=== PATIENT | male | born 1995 | race Caucasian/White ===

== ENCOUNTER 2021-09-24 11:54 | Emergency (ER) | payer OTHER, SELFPAY ==
[2021-09-24 13:05] VITALS: BP 137/84; PULSE 74; RESP 18; TEMP 37.1; O2SAT 98; BMI 32.1
[2021-09-24 13:38] LABS: UTC Influenza A Antigen Negative (Negative); UTC Strep Screen (Rapid) Positive (Negative)
[2021-09-24 13:39] LABS: UTC Influenza B Antigen Negative (Negative)
--- NOTE | 2021-09-24 13:47 | HMH.EDUTC ---
[facility] [place] Disposition Clinical Impression: Strep throat Disposition: Home, Self-Care Condition on Discharge: Good Instructions: Strep Throat, DI for Strep Throat Additional Instructions: Drink plenty of fluids. Take tylenol or ibuprofen for pain or fever. Take the medications as directed. Follow up with your regular doctor. GO TO THE ER FOR ANY WORSENING SYMPTOMS Throw your tooth brush away and get a new one. Prescriptions: Brompheniramine/Pseudoephed/Dm [Bromfed Dm Cough Syrup] 5 ml PO Q6HP PRN #240 ml PRN Reason: Cough Transmission Status: Received by [id number] Amoxicillin [Amoxicillin 500mg Tab] 500 mg PO TID 10 Days #30 tab Transmission Status: Received by [id number] predniSONE [Deltasone 10mg tablet] 10 mg PO BID 3 Days #6 tab Transmission Status: Received by [id number] Referrals: Provider,Referral, MD [Primary Care Provider] - Forms: Work/School Release Time of Disposition: 13:49 Medical Decision Making - Medical Records Medical records reviewed: No: I reviewed the patient's medical records. - Charles Inquiry Pt receiving controlled substance: No Vital Signs: 09/24/21 13:05 09/24/21 13:52 Temperature 98.7 F 98.7 F Temperature Source Oral Pulse Rate 74 Pulse Rate [Right Brachial] 74 Respiratory Rate 18 18 Blood Pressure 137/84 Blood Pressure [Right Arm] 137/84 Blood Pressure Mean [Right Arm] 101 Blood Pressure Source [Right Arm] Automatic Cuff Blood Pressure Position [Right Arm] Sitting 02 Sat by Pulse Oximetry 98 Oxygen Delivery Method Room Air - Lab Data Lab results reviewed: Yes: I reviewed the patient's lab results. Lab Results 09/24/21 13:20: Chlamy pneumoniae PCR Not detected, Adenovirus (PCR) Not detected, B. pertussis DNA (PCR) Not detected, Coronavirus OC43 (PCR) Not detected, Coronavirus HKU1 (PCR) Not detected, Coronavirus 229E (PCR) Not detected, SARS-CoV-2 (PCR) Not detected, Coronavirus NL63 (PCR) Not detected, Human Metapneumovir PCR Not detected, Influenza A (H1) PCR Not detected, Influ A (H1N1/09) PCR Not detected, Influenza A (H3) PCR Not detected, Influenza Type A (PCR) Not detected, Influenza Type B (PCR) Not detected, M. pneumoniae (PCR) Not detected, Parainfluenza 1 (PCR) Not detected, Parainfluenza 2 (PCR) Not detected, Parainfluenza 3 (PCR) Not detected, Parainfluenza 4 (PCR) Not detected, RSV (PCR) Not detected, Entero/Rhino (PCR) Not detected 09/24/21 13:37: Influenza Type A Ag Negative, Influenza Type B Ag Negative 09/24/21 13:37: Strep Scn Rapid Clinic Positive A [facility] [place] HPI - General Stated complaint: cough, abd pains, DELUCA, diarrhea Time Seen by Provider: 09/24/21 13:51 Mode of Arrival: Ambulatory Source of Information: Patient Limitations: No Limitations Description of Symptoms (Recalled from Triage Doc. by RN): PATIENT C/O HEADACHE, CHILLS, STOMACH ACHE, FEVER, AND DIARRHEA SINCE FRIDAY HEENT Symptoms (Recalled from RN notes): Yes Resp Symptoms (Recalled from RN notes): No Skin Symptoms (Recalled from RN notes): No MS Symptoms (Recalled from RN notes): No Functional Status (Recalled from RN notes): WNL - History of Present Illness Provider Complaint: He c/o feeling bad for the past 5 days. He has been checked for covid-19 at his job ([employer]) and it has been negative. - Related Data Previous Rx's Medication Instructions Recorded Amoxicillin [Amoxicillin 500mg Tab] 500 mg PO TID 10 Days #30 tab 09/24/21 Brompheniramine/Pseudoephed/Dm 5 ml PO Q6HP PRN #240 ml 09/24/21 [Bromfed Dm Cough Syrup] predniSONE [Deltasone 10mg tablet] 10 mg PO BID 3 Days #6 tab 09/24/21 Allergies Allergy/AdvReac Type Severity Reaction Status Date / Time No Known Allergies Allergy Verified 09/24/21 13:37 - Worker's Comp Is this a Worker's Comp case?: No [facility] History - Hepatitis A Screen Drug use history?: No High risk sexual behaviors?: No History of sexually transmitted infection?: No Currently em
[2021-09-24 13:52] VITALS: BP 137/84; PULSE 74; RESP 18; TEMP 37.1; O2SAT 98
[2021-09-24 13:53] LABS: Adenovirus,PCR Not Detected (NotDetected); Bordetella Pertussis Not Detected (NotDetected); Chlamydophila Pneumoniae, PCR Not Detected (NotDetected); Coronavirus 19, PCR Not Detected (NotDetected); Coronavirus 229E Not Detected (NotDetected); Coronavirus NL63 Not Detected (NotDetected); Coronavirus OC43 Not Detected (NotDetected); Coronovirus HKU1,PCR Not Detected (NotDetected); Human Metapneumovirus Not Detected (NotDetected); Influenza A, PCR Not Detected (NotDetected); Influenza AH1, 2009 Not Detected (NotDetected); Influenza AH1, PCR Not Detected (NotDetected); Influenza AH3,PCR Not Detected (NotDetected); Influenza B, PCR Not Detected (NotDetected); Mycoplasma Pneumoniae, PCR Not Detected (NotDetected); Parainfluenza 1, PCR Not Detected (NotDetected); Parainfluenza 2, PCR Not Detected (NotDetected); Parainfluenza 3, PCR Not Detected (NotDetected); Parainfluenza 4, PCR Not Detected (NotDetected); Respiratory Syncytial Virus Not Detected (NotDetected); Rhinovirus/Enterovirus Not Detected (NotDetected)
== END 2021-09-24 13:57 | disposition home or self-care (01) ==
PROVIDERS: Emergency Provider Nurse Practitioner Family
DX: J02.0 Streptococcal pharyngitis (principal)
CPT/HCPCS: 87581; 87632; 87798; 87804; 87880; 99203; C9803; G0463; U0003; U0005

== ENCOUNTER 2023-08-21 09:05 | Emergency (ER) | payer OTHER, SELFPAY ==
[2023-08-21 09:20] VITALS: BP 125/90; PULSE 78; RESP 22; TEMP 37.1; O2SAT 99; BMI 33.2
--- NOTE | 2023-08-21 09:29 | EXP.UTC ---
Discharge Plan Disposition Patient Disposition: Home, Self-Care Condition: Good Prescriptions Prescriptions: New amoxicillin 500 mg capsule 500 mg PO TID 7 Days Qty: 21 0RF fluticasone propionate [Flonase Allergy Relief] 50 mcg/actuation spray,suspension 1 - 2 spray intranasal DAILY Qty: 16 0RF Rx Instructions: administer into each nostril benzonatate 100 mg capsule 100 mg PO TID PRN (Reason: cough) Qty: 30 0RF pseudoephedrine HCl [Sudafed 12 Hour] 120 mg tablet extended release 120 mg PO Q12H PRN (Reason: nasal congestion) Qty: 20 0RF Referrals Follow up/Referrals: Provider,Referral, MD [Primary Care Provider] - See instructions Activity Restrictions/Add. Instructions Additional Instructions/Restrictions: *Monitor Temp, Over the counter Motrin or Tylenol as directed/as needed Tylenol every 4 hours and Motrin every 6 hours (as long as your family doctor has told you that you can take it) for fever or pain. and straight to ER if unable to lower temp less than 101.0 after medication given *Warm salt water gargles may help to soothe the throat *Throat Lozenges? *Warm fluids like tea with honey may help to soothe the throat? *Sleep elevated *Humidifier/Vaporizer *Flonase 2 sprays in each nostril daily but be aware that it may take 2-3 days before you notice improvement Your throat swab was sent for culture. Those results are typically sent to your primary care. Be sure to follow up in 2-3 days with your family doctor/primary care physician if no improvement so they can review those result and treat if necessary. If you don?t have a primary care doctor, I recommend you get one but in the mean time, you will have to return to a walk in clinic Follow up IMMEDIATELY for new or worsening symptoms or no Noticeable improvement over the next 48-72 hours. 911 for difficulty breathing or swallowing Clinical Impressions Clinical Impression: Otitis media Qualifiers: Otitis media type: unspecified Laterality: left Qualified Code(s): H66.92 - Otitis media, unspecified, left ear Stand Alone Forms Stand Alone Forms: Work/School Release Instructions Patient Instructions: Middle Ear Infection Discharge ED Provider: Carlota Juan [facility] [place] HPI General Stated complaint: congestion dizzyness sore throat lyn Mode of Arrival: Ambulatory Source of Information: Patient Limitations: No Limitations Time Seen by Provider: 08/21/23 09:33 Description of Symptoms (Recalled from Triage Doc. by RN): PATIENT C/O CONGESTION, RUNNY NOSE, HEADACHE, DIZZINESS, SORE THROAT, AND LOSS OF TASTE THAT STARTED THIS WEEK HEENT Symptoms (Recalled from RN notes): Yes Resp Symptoms (Recalled from RN notes): No Skin Symptoms (Recalled from RN notes): No MS Symptoms (Recalled from RN notes): No Functional Status (Recalled from RN notes): WNL History of Present Illness Provider Complaint: Patient states that he started earlier in the week with nasal congestion and pressure, sore throat, pain in his left ear, runny nose and headache States that he has been taking OTC cold medications but nothing has helped States that he was at work earlier today and got a little dizzy when he was moving around so he left work and came in to get checked Related Data Previous Rx's Medication Instructions Recorded amoxicillin 500 mg capsule 500 mg PO TID 7 days #21 caps 08/21/23 benzonatate 100 mg capsule 100 mg PO TID PRN cough #30 caps 08/21/23 fluticasone propionate 50 1 - 2 spray intranasal DAILY #16 08/21/23 mcg/actuation nasal grams spray,suspension (Flonase Allergy Relief) pseudoephedrine HCl 120 mg 120 mg PO Q12H PRN nasal 08/21/23 tablet,extended release (Sudafed congestion #20 tabs 12 Hour) Allergies Allergy/AdvReac Type Severity Reaction Status Date / Time shellfish derived Allergy Verified 08/21/23 09:28 Worker's Comp Is this a Worker's Comp case?: No [facility] Disclaimer: T
[2023-08-21 09:31] LABS: UTC Strep Screen (Rapid) Negative (Negative)
[2023-08-21 09:40] VITALS: BP 125/90; PULSE 78; RESP 22; TEMP 37.1; O2SAT 99
== END 2023-08-21 09:44 | disposition home or self-care (01) ==
PROVIDERS: Emergency Provider Nurse Practitioner
DX: H66.92 Otitis media, unspecified, left ear (principal); R05.9 Cough, unspecified; R09.81 Nasal congestion
CPT/HCPCS: 87880; 99212; 99214; G0463

== ENCOUNTER 2023-12-20 21:44 | Emergency (ER) | payer OTHER, SELFPAY ==
[2023-12-20 21:46] VITALS: BP 140/104; PULSE 129; RESP 18; TEMP 38.3; O2SAT 100; BMI 32.3
[2023-12-20 22:15] LABS: Coronavirus 19, PCR Not Detected (NotDetected); Influenza B, PCR Not Detected (NotDetected)
[2023-12-20] MEDS: ONDANSETRON 4MG ODT 4 MG SL (22:29)
[2023-12-20] MEDS: DEXAMETHASONE 4MG TABLET 10 MG PO (22:29)
--- NOTE | 2023-12-20 22:31 | HMH.EDGENADL ---
Discharge Plan Disposition Patient Disposition: Home, Self-Care Prescriptions Prescriptions: New ondansetron 4 mg tablet,disintegrating 4 mg PO Q6H PRN (Reason: nausea and vomiting) Qty: 10 0RF oseltamivir [Tamiflu] 75 mg capsule 75 mg PO BID 5 Days Qty: 10 0RF dexamethasone 2 mg tablet 10 mg PO DAILY 5 Days Qty: 25 0RF No Action amoxicillin 500 mg capsule 500 mg PO TID 7 Days Qty: 21 0RF fluticasone propionate [Flonase Allergy Relief] 50 mcg/actuation spray,suspension 1 - 2 spray intranasal DAILY Qty: 16 0RF Rx Instructions: administer into each nostril benzonatate 100 mg capsule 100 mg PO TID PRN (Reason: cough) Qty: 30 0RF pseudoephedrine HCl [Sudafed 12 Hour] 120 mg tablet extended release 120 mg PO Q12H PRN (Reason: nasal congestion) Qty: 20 0RF Referrals Follow up/Referrals: Provider,Referral, MD [Primary Care Provider] - See instructions Activity Restrictions/Add. Instructions Additional Instructions/Restrictions: Call your family doctor to establish care for this visit to the emergency department and schedule follow-up within 48 hours to ensure improvement. If you have any worsening of your condition or any other concerning signs or symptoms, return to the emergency department or your primary care doctor for further evaluation. Clinical Impressions Clinical Impression: Influenza A Discharge ED Provider: Ander No General Adult HPI General Chief complaint: Upper Respiratory Infection Stated complaint: headache, body aches, vomiting Time Seen by Provider: 12/20/23 21:50 Mode of Arrival: Ambulatory Source of Information: Patient Limitations: No Limitations Description of Symptoms (Recalled from ER Triage Doc. by RN): Patient c/o chills, body aches, and URI symptoms and flu exposure. History of Present Illness HPI narrative: 28-year-old dawit otherwise healthy presenting with fevers, chills, per respiratory symptoms and GI symptoms. Multiple sick contacts with flu. Patient has been unable to keep much p.o. intake down secondary to nausea. Fevers and chills that are responsive to Tylenol and Motrin. Patient also having cough productive of clear sputum. Related Data Previous Rx's Medication Instructions Recorded amoxicillin 500 mg capsule 500 mg PO TID 7 days #21 caps 08/21/23 benzonatate 100 mg capsule 100 mg PO TID PRN cough #30 caps 08/21/23 fluticasone propionate 50 1 - 2 spray intranasal DAILY #16 08/21/23 mcg/actuation nasal grams spray,suspension (Flonase Allergy Relief) pseudoephedrine HCl 120 mg 120 mg PO Q12H PRN nasal 08/21/23 tablet,extended release (Sudafed congestion #20 tabs 12 Hour) dexamethasone 2 mg tablet 10 mg PO DAILY 5 days #25 tabs 12/20/23 ondansetron 4 mg disintegrating 4 mg PO Q6H PRN nausea and 12/20/23 tablet vomiting #10 tabs oseltamivir 75 mg capsule (Tamiflu) 75 mg PO BID 5 days #10 caps 12/20/23 Allergies Allergy/AdvReac Type Severity Reaction Status Date / Time shellfish derived Allergy Verified 08/21/23 09:28 [facility] Disclaimer: The information contained in this section may have been updated after the patient was seen, as this information can be updated by other users. Surgical History (Updated 08/21/23 @ 09:28 by Delmi Valero RN) History of tonsillectomy Social History (Updated 08/21/23 @ 09:42 by Carlota Juan APRN) Smoking Status: Never smoker alcohol intake: never current occupational status: employed Travel in the last 8 weeks: None ROS Obtained: Yes All systems reviewed & no additional complaints except as documented Physical Exam General General appearance: alert and in no apparent distress Head Head exam: atraumatic and normocephalic Eye Eye exam: Present normal appearance, PERRL and EOMI ENT ENT exam: Present mucous membranes moist Neck Neck exam: Present normal inspection, full ROM and trachea midline Respiratory Respiratory exam: Absent respiratory distress, wheezes, stridor, accessory muscle use or prolonged expiratory phase Cardiovascular Cardiovascular exam: Present normal rhythm Abdominal Exam Abdominal exam: Present soft; Absent distention, tenderness, guarding, rebound or rigidity Extremities Exam Extremities exam: Absent edema Neurological Exam Neurological exam: Present alert, oriented X3, CN II-XII intact and normal gait; Absent motor sensory deficit Skin Skin exam: Present warm and dry; Absent diaphoresis or erythema Medical Decision Making Medical Records Medical records reviewed: Yes I reviewed the patient's medical records. Charles Inquiry Pt receiving controlled substance: No Charles was queried for this patient: No Vital Signs: 12/20/23 21:46 12/20/23 22:44 Temperature 100.9 F H 98.9 F Temperature Source Oral Oral Pulse Rate 110 H Pulse Rate [Radial] 129 H Respiratory Rate 18 18 Blood Pressure 140/90 Blood Pressure [Right Arm] 140/104 H Blood Pressure Mean [Right Arm] 116 02 Sat by Pulse Oximetry 100 Oxygen Delivery Method Room Air Orders (Tests/Meds): ED MEDICATIONS Discontinued Medications Generic Name Dose Route Start Last Admin Trade Name Jun PRN Reason Stop Dose Admin Dexamethasone 10 mg 12/20/23 22:22 12/20/23 22:29 Dexamethasone 4mg Tablet PO 12/20/23 22:23 10 mg ONCE ONE Administration Ondansetron HCl 4 mg 12/20/23 22:22 12/20/23 22:29 Ondansetron 4mg Odt SL 12/20/23 22:23 4 mg ONCE ONE Administration ORDERS Category Date Time Status Rapid PCR Covid and Flu A/B Stat Lab 12/20/23 22:03 Received Medical Decision Narrative: 28-year-old dawit otherwise healthy presenting with fevers, chills, per respiratory symptoms and GI symptoms. Multiple sick contacts with flu. Patient has been unable to keep much p.o. intake down secondary to nausea. Fevers and chills that are responsive to Tylenol and Motrin. Patient also having cough productive of clear sputum. History was obtained via conversation with patient. On arrival, patient hemodynamically stable, alert, oriented x4, appropriate, GCS 15, moving all extremities spontaneously, pupils equal and reactive to light. Full physical exam performed and significant for well-appearing male no acute distress. Hypertensive, tachycardic, febrile 100.9. Lungs are clear to auscultation, patient appears to be mildly uncomfortable, but pleasant and appropriate. Intermittently coughing, but not producing anything. Differential includes flu versus other viral syndrome, among others. Patient was given Decadron, Zofran p.o for symptomatic management and correction of underlying abnormalities. Workup independently interpreted and significant for positive. Chest x-ray considered given productive cough, but given 3 days of symptoms and clinically viral syndrome, not deemed necessary. Very low likelihood of bacterial pneumonia given well-appearing patient. On reevaluation, patient tolerating p.o. intake without issue. Given patient presentation, workup, history, this most likely represents flu a positivity. Because patient at baseline without signs or symptoms of clinical decompensation, deemed appropriate for discharge. Results were relayed to patient father who voiced understanding and were agreeable to outpatient management and follow up. At the time of discharge the patient was hemodynamically stable, tolerating PO, and mobilizing appropriately. Critical Care Critical Care Time Critical Care Time: No
[2023-12-20 22:44] VITALS: BP 140/90; PULSE 110; RESP 18; TEMP 37.2; O2SAT 100
--- NOTE | 2023-12-20 22:44 | PC.NURSE ---
in room talking with patient.
[2023-12-20 23:08] LABS: Influenza A, PCR Detected (NotDetected)
== END 2023-12-20 22:59 | disposition home or self-care (01) ==
PROVIDERS: Emergency Provider Emergency Medicine
DX: J10.1 Influenza due to other identified influenza virus with other respiratory manifestations (principal); J10.2 Influenza due to other identified influenza virus with gastrointestinal manifestations; R05.9 Cough, unspecified; R50.9 Fever, unspecified; R11.0 Nausea
CPT/HCPCS: 87636; 99283

== ENCOUNTER 2023-12-26 08:03 | Emergency (ER) | payer BC, SELFPAY ==
[2023-12-26 08:10] VITALS: BP 133/87; PULSE 93; RESP 18; TEMP 36.9; O2SAT 97; BMI 32.2
--- NOTE | 2023-12-26 08:23 | ED_ITS ---
Discharge Plan Disposition Patient Disposition: Home, Self-Care Condition: Good Prescriptions Prescriptions: New mtivjhuz-ctymalhwb-RO 3.5-10,000-1 mg/mL-unit/mL-% solution 4 drp Ear-Right Q8H 7 Days Qty: 10 0RF amoxicillin [amoxicillin] 875 mg tablet 875 mg PO Q12H Qty: 20 0RF methylprednisolone 4 mg Tablets,Dose Pack 4 mg PO DIRECTED 6 Days Qty: 21 0RF Rx Instructions: Take 1 pack as directed for 6 days No Action fluticasone propionate [Flonase Allergy Relief] 50 mcg/actuation spray,suspension 1 - 2 spray intranasal DAILY Qty: 16 0RF Rx Instructions: administer into each nostril ondansetron 4 mg tablet,disintegrating 4 mg PO Q6H PRN (Reason: nausea and vomiting) Qty: 10 0RF dexamethasone 2 mg tablet 10 mg PO DAILY 5 Days Qty: 25 0RF Referrals Follow up/Referrals: Provider,Referral, MD [Primary Care Provider] - See instructions Activity Restrictions/Add. Instructions Additional Instructions/Restrictions: Drink plenty of fluids. Take tylenol or ibuprofen for pain or fever. Take the medications as directed. Follow up with your regular doctor. GO TO THE ER FOR ANY WORSENING SYMPTOMS Clinical Impressions Clinical Impression: Otitis media Instructions Patient Instructions: How to Instill Ear Drops, Middle Ear Infection Discharge ED Provider: Seth Jacobo [facility] General Stated complaint: R ear pain, Time Seen by Provider: 12/26/23 08:23 History of Present Illness Provider Complaint: He states that he has had right ear pain and sinus congestion for the past 2 days. Related Data Previous Rx's Medication Instructions Recorded fluticasone propionate 50 1 - 2 spray intranasal DAILY #16 08/21/23 mcg/actuation nasal grams spray,suspension (Flonase Allergy Relief) dexamethasone 2 mg tablet 10 mg PO DAILY 5 days #25 tabs 12/20/23 ondansetron 4 mg disintegrating 4 mg PO Q6H PRN nausea and 12/20/23 tablet vomiting #10 tabs amoxicillin 875 mg tablet 875 mg PO Q12H #20 tabs 12/26/23 methylprednisolone 4 mg tablets in 4 mg PO DIRECTED 6 days #21 tabs 12/26/23 a dose pack [id number]-skynfnlhr 3.5 4 drp Ear-Right Q8H 7 days #10 mL 12/26/23 mg/mL-10,000 unit/mL-1 % ear solution Allergies Allergy/AdvReac Type Severity Reaction Status Date / Time shellfish derived Allergy Verified 12/26/23 08:34 [facility] Disclaimer: The information contained in this section may have been updated after the patient was seen, as this information can be updated by other users. Surgical History History of tonsillectomy Social History Smoking Status: Never smoker alcohol intake: never current occupational status: employed Travel in the last 8 weeks: None ROS Obtained: Yes All systems reviewed & no additional complaints except as documented Constitutional Constitutional: Denies chills, Reports fever(s) and Reports poor appetite Eyes Eyes: Denies eye discharge ENT Ears, Nose, Mouth, and Throat: Denies ear discharge, Reports otalgia, Denies hearing loss, Denies sinus pain and Reports sore throat Cardiovascular Cardiovascular: Denies chest pain and Denies dyspnea Respiratory Respiratory: Denies chest congestion, Reports cough and Denies dyspnea Gastrointestinal Gastrointestingal: Denies abdominal pain, diarrhea, nausea or vomiting Musculoskeletal Musculoskeletal: Denies arthralgias Integumentary/Breasts Skin/Breast: Denies rash Physical Exam General General appearance: alert and in no apparent distress Head Head exam: atraumatic, normocephalic and normal inspection Eye Eye exam: Present normal appearance; Absent PERRL or EOMI ENT ENT exam: Present mucous membranes moist and normal external ear exam Expanded ENT Exam TM/Canal exam: Bilateral TM: erythema, bulging and effusion Nose exam: Absent sinus tenderness Nasal speculum exam: Bilateral: normal Mouth exam: Present normal external inspection and other; Absent drooling Teeth exam: Present normal inspection Throat exam: Present tonsillar erythema and tonsillomegaly Neck Neck exam: Present normal inspection, full ROM and trachea midline; Absent tenderness, meningismus or lymphadenopathy Chest Chest inspection: Present normal inspection and symmetric chest wall rise; Absent tenderness Respiratory Respiratory exam: Present normal lung sounds bilaterally; Absent respiratory distress, wheezes or stridor Cardiovascular Cardiovascular exam: Present regular rate, normal rhythm and normal heart sounds; Absent tachycardia or irregular rhythm Abdominal Exam Abdominal exam: Present soft and normal bowel sounds; Absent distention, tenderness, guarding, rebound or rigidity Extremities Exam Extremities exam: Present normal inspection and normal capillary refill; Absent tenderness, joint swelling or calf tenderness Back Exam Back exam: Present normal inspection and full ROM; Absent tenderness, CVA tenderness (R) or CVA tenderness (L) Neurological Exam Neurological exam: Present alert, oriented X3, CN II-XII intact, normal gait and reflexes normal; Absent motor sensory deficit Psychiatric Psychiatric exam: Present normal affect and normal mood Skin Skin exam: Present warm, dry, intact and normal color Lymphatic Lymphatic Findings: no adenopathy Medical Decision Making Medical Records Medical records reviewed: No I reviewed the patient's medical records. Charles Inquiry Pt receiving controlled substance: No
[2023-12-26 08:37] VITALS: BP 133/87; PULSE 93; RESP 18; TEMP 36.9; O2SAT 97
== END 2023-12-26 08:37 | disposition home or self-care (01) ==
PROVIDERS: Emergency Provider Nurse Practitioner Family
DX: H66.93 Otitis media, unspecified, bilateral (principal); R09.81 Nasal congestion
CPT/HCPCS: 99212; 99214; G0463

== ENCOUNTER 2023-12-29 17:11 | Emergency (ER) | payer BC, SELFPAY ==
[2023-12-29 19:30] VITALS: BP 131/87; PULSE 87; RESP 19; TEMP 37.7; O2SAT 98; BMI 32.3
--- NOTE | 2023-12-29 20:04 | EXP.UTC ---
Discharge Plan Disposition Patient Disposition: Home, Self-Care Condition: Good Prescriptions Prescriptions: New prednisone 10 mg tablet 10 mg PO BID 5 Days Qty: 10 0RF No Action gsiwmgir-wpefcccqi-PB 3.5-10,000-1 mg/mL-unit/mL-% solution 4 drp Ear-Right Q8H 7 Days Qty: 10 0RF amoxicillin [amoxicillin] 875 mg tablet 875 mg PO Q12H Qty: 20 0RF methylprednisolone 4 mg Tablets,Dose Pack 4 mg PO DIRECTED 6 Days Qty: 21 0RF Rx Instructions: Take 1 pack as directed for 6 days Referrals Follow up/Referrals: Provider,Referral, MD [Primary Care Provider] - See instructions Activity Restrictions/Add. Instructions Additional Instructions/Restrictions: Continue Amoxicillin as prescribed DIscard the Medrol Dose pack and do not restart I sent you in Prednisone that is easier for you to keep on schedule Follow up with your Family Doctor or ENT if no improvement or any worsening of symptoms Clinical Impressions Clinical Impression: Otitis media Qualifiers: Otitis media type: unspecified Laterality: right Qualified Code(s): H66.91 - Otitis media, unspecified, right ear Instructions Patient Instructions: Middle Ear Infection, Prednisone Discharge ED Provider: Carlota Juan [facility] General Stated complaint: right ear pain Mode of Arrival: Ambulatory Source of Information: Patient Limitations: No Limitations Time Seen by Provider: 12/29/23 20:10 Description of Symptoms (Recalled from Triage Doc. by RN): PATIENT C/O RIGHT EAR PAIN, STATES HE WAS RECENTLY ON AN ANTIBIOTICS HEENT Symptoms (Recalled from RN notes): Yes Resp Symptoms (Recalled from RN notes): No Skin Symptoms (Recalled from RN notes): No MS Symptoms (Recalled from RN notes): No Functional Status (Recalled from RN notes): WNL History of Present Illness Provider Complaint: Patient states that he was seen on Friday and started on antibiotics and was told to return if it wasnt any better States that he was given a medrol pack but has had a hard time keeping on the schedule and wanting to get something else he stopped it after the first day Related Data Previous Rx's Medication Instructions Recorded amoxicillin 875 mg tablet 875 mg PO Q12H #20 tabs 12/26/23 methylprednisolone 4 mg tablets in 4 mg PO DIRECTED 6 days #21 tabs 12/26/23 a dose pack zkpuwlfr-fkhkalopo-ghayqphbd 3.5 4 drp Ear-Right Q8H 7 days #10 mL 12/26/23 mg/mL-10,000 unit/mL-1 % ear solution prednisone 10 mg tablet 10 mg PO BID 5 days #10 tabs 12/29/23 Allergies Allergy/AdvReac Type Severity Reaction Status Date / Time shellfish derived Allergy Verified 12/26/23 08:34 Worker's Comp Is this a Worker's Comp case?: No [facility] Disclaimer: The information contained in this section may have been updated after the patient was seen, as this information can be updated by other users. Surgical History History of tonsillectomy Social History Smoking Status: Never smoker alcohol intake: never current occupational status: employed Travel in the last 8 weeks: None ROS Obtained: Yes All systems reviewed & no additional complaints except as documented and Yes Systems reviewed as appropriate & no additional complaints except as documented Constitutional Constitutional: Reports system reviewed and no additional complaints, except as documented and Reports as per HPI ENT Ears, Nose, Mouth, and Throat: Reports system reviewed and no additional complaints, except as documented, Reports as per HPI and Reports otalgia Cardiovascular Cardiovascular: Reports system reviewed and no additional complaints, except as documented and Reports as per HPI Respiratory Respiratory: Reports system reviewed and no additional complaints, except as documented and Reports as per HPI Gastrointestinal Gastrointestingal: Reports system reviewed and no additional complaints, except as documented and as per HPI Physical Exam General General appearance: alert and in no apparent distress ENT ENT exam: Present mucous membranes moist Expanded ENT Exam TM/Canal exam: Right TM: erythema and bulging (redness noted ) Respiratory Respiratory exam: Present normal lung sounds bilaterally; Absent respiratory distress or wheezes Cardiovascular Cardiovascular exam: Present regular rate, normal rhythm and normal heart sounds Neurological Exam Neurological exam: Present alert, oriented X3 and normal gait Medical Decision Making Charles Inquiry Pt receiving controlled substance: No Charles was queried for this patient: No Vital Signs: 12/29/23 19:30 Temperature 99.8 F H Temperature Source Oral Pulse Rate [Right Brachial] 87 Respiratory Rate 19 Blood Pressure [Right Arm] 131/87 Blood Pressure Mean [Right Arm] 101 Blood Pressure Source [Right Arm] Automatic Cuff Blood Pressure Position [Right Arm] Sitting 02 Sat by Pulse Oximetry 98 Oxygen Delivery Method Room Air Medical Decision Narrative: discussed with patient to not restart medrol and will change to prednisone
[2023-12-29 20:09] VITALS: BP 131/87; PULSE 87; RESP 19; TEMP 37.7; O2SAT 98
== END 2023-12-29 20:17 | disposition home or self-care (01) ==
PROVIDERS: Emergency Provider Nurse Practitioner
DX: H66.91 Otitis media, unspecified, right ear (principal)
CPT/HCPCS: 99212; 99213; G0463

== ENCOUNTER 2024-04-27 18:03 | Emergency (ER) | payer BC, SELFPAY ==
[2024-04-27 18:03] VITALS: BP 156/98; PULSE 96; RESP 18; TEMP 37.7; O2SAT 98; BMI 31.5
--- NOTE | 2024-04-27 18:14 | ED_ITS ---
Discharge Plan Prescriptions Prescriptions: No Action ztwqumym-olmeceznj-PC 3.5-10,000-1 mg/mL-unit/mL-% solution 4 drp Ear-Right Q8H 7 Days Qty: 10 0RF amoxicillin [amoxicillin] 875 mg tablet 875 mg PO Q12H Qty: 20 0RF methylprednisolone 4 mg Tablets,Dose Pack 4 mg PO DIRECTED 6 Days Qty: 21 0RF Rx Instructions: Take 1 pack as directed for 6 days prednisone 10 mg tablet 10 mg PO BID 5 Days Qty: 10 0RF Referrals Follow up/Referrals: Provider,Referral, MD [Primary Care Provider] - See instructions Discharge ED Provider: Ander No General Adult HPI General Stated complaint: exp to covid-sore throat, cough, body aches Time Seen by Provider: 04/27/24 18:12 Related Data Previous Rx's Medication Instructions Recorded amoxicillin 875 mg tablet 875 mg PO Q12H #20 tabs 12/26/23 methylprednisolone 4 mg tablets in 4 mg PO DIRECTED 6 days #21 tabs 12/26/23 a dose pack lhbxijiw-yzugnmevt-hmcwihlmj 3.5 4 drp Ear-Right Q8H 7 days #10 mL 12/26/23 mg/mL-10,000 unit/mL-1 % ear solution prednisone 10 mg tablet 10 mg PO BID 5 days #10 tabs 12/29/23 Allergies Allergy/AdvReac Type Severity Reaction Status Date / Time shellfish derived Allergy Verified 12/26/23 08:34 [facility] Disclaimer: The information contained in this section may have been updated after the patient was seen, as this information can be updated by other users. Surgical History History of tonsillectomy Social History Smoking Status: Never smoker alcohol intake: never current occupational status: employed Travel in the last 8 weeks: None ROS Obtained: Yes Systems reviewed as appropriate & no additional complaints except as documented Physical Exam General General appearance: alert and in no apparent distress Head Head exam: atraumatic and normal inspection Eye Eye exam: Present normal appearance, PERRL and EOMI ENT ENT exam: Present normal exam, normal oropharynx and mucous membranes moist Neck Neck exam: Present normal inspection, full ROM and trachea midline; Absent lymphadenopathy Chest Chest inspection: Present normal inspection and symmetric chest wall rise Respiratory Respiratory exam: Present normal lung sounds bilaterally; Absent accessory muscle use Cardiovascular Cardiovascular exam: Present regular rate, normal rhythm, normal heart sounds, +S1 and +S2 Abdominal Exam Abdominal exam: Present soft and normal bowel sounds; Absent tenderness, guarding or rebound Extremities Exam Extremities exam: Present normal inspection and full ROM Neurological Exam Neurological exam: Present alert, oriented X3 and CN II-XII intact Psychiatric Psychiatric exam: Present normal affect and normal mood Skin Skin exam: Present warm, dry and normal color Lymphatic Lymphatic Findings: no adenopathy Medical Decision Making Medical Decision Narrative: In summary patient is a [age, sex] who presents to the emergency department for evaluation of [complaint]. Patient is [hemodynamically stable/unstable] upon arrival, [febrile/afebrile]. [Unremarkable physical exam, nonfocal exam versus focal remarkable exam]. Differential diagnosis includes [DDx]. Initial workup will be conducted with [hematologic labs, imaging, respiratory swab, describe workup]. Initial interventions include [crystalloid bolus, medications, p.o. challenge, etc.] initial workup reviewed by me [hematologic labs are remarkable for... Imaging remarkable for... Urinalysis remarkable for]. Upon repeat evaluation [patient had acceptable resolution of symptoms, had persistent pain for which additional interventions were conducted (describe interventions), tolerated p.o., was ambulatory, etc.]. Given this [patient is appropriate for discharge at this time and will be discharged with a prescription for... The case was discussed with hospital medicine regarding management and they will admit the patient their service for continued evaluation at this time... Etc.] Places where you can increase complexity: I informally interpreted the patient's chest x-ray or CT read and is remarkable for... Documenting what the registered nurse cardiac telemetry shows with rate and rhythm Consideration of test but deferring. Ex: I considered chest x-ray on this patient however given that they have no oxygen requirement and are clear to auscultation all lung morton will be deferred. Social determinants of health: Given that patient is undomiciled increases complexity. Given that patient has polysubstance abuse compounds all aspects of care
[2024-04-27 18:22] VITALS: BMI 31.5
[2024-04-27 18:28] LABS: Coronavirus 19, PCR Not Detected (NotDetected); Influenza A, PCR Not Detected (NotDetected); Influenza B, PCR Not Detected (NotDetected)
[2024-04-27] MEDS: DEXAMETHASONE 4MG TABLET 10 MG PO (18:41)
--- NOTE | 2024-04-27 18:46 | ED_ITS ---
Discharge Plan Disposition Patient Disposition: Home, Self-Care Prescriptions Prescriptions: No Action No Known Home Medications Referrals Follow up/Referrals: Provider,Referral, MD [Primary Care Provider] - See instructions Activity Restrictions/Add. Instructions Additional Instructions/Restrictions: Call your family doctor to establish care for this visit to the emergency department and schedule follow-up within 48 hours to ensure improvement. If you have any worsening of your condition or any other concerning signs or symptoms, return to the emergency department or your primary care doctor for further evaluation. Nightly Zyrtec, Claritin, or other allergy med will help with cough. Take Tylenol 1000 mg every 6 hours (4 times daily) and ibuprofen 400 mg every 6 hours (4 times daily) as needed with food and water to prevent GI upset and kidney damage. Clinical Impressions Clinical Impression: Cough, Pharyngitis Discharge ED Provider: Ander No General Adult HPI General Chief complaint: Upper Respiratory Infection Stated complaint: exp to covid-sore throat, cough, body aches Time Seen by Provider: 04/27/24 18:12 History of Present Illness HPI narrative: Please note that above description of symptoms, in this electronic medical record under categorization of recalled from ER triage doctor by RN are reflective of an initial nursing assessment, however, is not reflective of my full history and physical exam that was personally taken and clarified. Consequentially, this preceding description of symptoms, which may include the patient's categorized chief complaint in the EMR, do not reflect my personal clinical impression, and the ultimate description of history of present illness and patient stated complaints should be deferred to this section of the note. Unless stated otherwise or congruent with this section of the note, additional signs, symptoms, or incongruence should be interpreted as inaccurate with my clinical impression. Related Data Home Medications Medication Instructions Recorded Confirmed No Known Home Medications 04/27/24 04/27/24 Allergies Allergy/AdvReac Type Severity Reaction Status Date / Time shellfish derived Allergy Verified 04/27/24 18:50 [facility] Disclaimer: The information contained in this section may have been updated after the patient was seen, as this information can be updated by other users. Surgical History History of tonsillectomy Social History Smoking Status: Never smoker alcohol intake: never current occupational status: employed Travel in the last 8 weeks: None ROS Obtained: Yes All systems reviewed & no additional complaints except as documented Physical Exam General General appearance: alert and in no apparent distress Head Head exam: atraumatic and normocephalic Eye Eye exam: Present normal appearance, PERRL and EOMI ENT ENT exam: Present mucous membranes moist Neck Neck exam: Present normal inspection, full ROM and trachea midline Respiratory Respiratory exam: Absent respiratory distress, wheezes, stridor, accessory muscle use or prolonged expiratory phase Cardiovascular Cardiovascular exam: Present normal rhythm Abdominal Exam Abdominal exam: Present soft; Absent distention, tenderness, guarding, rebound or rigidity Extremities Exam Extremities exam: Absent edema Neurological Exam Neurological exam: Present alert, oriented X3, CN II-XII intact and normal gait; Absent motor sensory deficit Skin Skin exam: Present warm and dry; Absent diaphoresis or erythema Medical Decision Making Medical Records Medical records reviewed: Yes I reviewed the patient's medical records. Charles Inquiry Pt receiving controlled substance: No Charles was queried for this patient: No Vital Signs: 04/27/24 18:03 Temperature 99.9 F H Temperature Source Oral Pulse Rate [Left Radial] 96 H Respiratory Rate 18 Blood Pressure [Right Arm] 156/98 H Blood Pressure Mean [Right Arm] 117 Blood Pressure Source [Right Arm] Automatic Cuff Blood Pressure Position [Right Arm] Sitting 02 Sat by Pulse Oximetry 98 Oxygen Delivery Method Room Air Lab Data Lab Results 04/27/24 18:20: SARS-CoV-2 (PCR) Not detected, Influenza A Untype (PCR) Not detected, Influenza Type B (PCR) Not detected Orders (Tests/Meds): ED MEDICATIONS Discontinued Medications Generic Name Dose Route Start Last Admin Trade Name Luisq PRN Reason Stop Dose Admin Dexamethasone 10 mg 04/27/24 18:23 04/27/24 18:41 Dexamethasone 4mg Tablet PO 04/27/24 18:24 10 mg ONCE ONE Administration ORDERS Category Date Time Status Rapid PCR Covid and Flu A/B Stat Lab 04/27/24 18:20 Completed Medical Decision Narrative: 28-year-old male presenting with viral symptoms. Has been going on getting worse last couple days. Sore throat, nausea without vomiting, tactile fevers and chills. Patient continues Tylenol Motrin with mild relief. States he is also had a cough at night that is worse, but intermittent throughout the day. Nonproductive. Patient does have a sick contact in the house, daughter started with the symptoms a couple days prior and is having similar symptoms. History obtained patient. Patient hemodynamically stable. Cardiopulmonary exam within normal limits. Neurologically intact. Pharyngeal erythema without tonsillitis or exudate. Not coughing. Differential includes viral syndrome, among others. Utility of viral swab was discussed, patient opting for viral swab anyway. Decadron to be given. Viral swab resulted with negative COVID and flu. Because patient at baseline without signs or symptoms of clinical decompensation, deemed appropriate for discharge. Results were relayed to patient who voiced understanding and were agreeable to outpatient management and follow up. I discussed my clinical impression with patient and answered all questions. At this time, the evidence for any other entities in the differential is insufficient to warrant any further testing or ED observation. This was explained as well. Advisory was given that persistent or worsening symptoms require further evaluation. I confirmed the understanding of this discussion. Die Trimmer disclaimer Much of this encounter note is an electronic irish moss bleacher spoken language to printed text. Electronic irish moss bleacher of the spoken language may permit errors. Although I have reviewed the note, some errors may still exist. Critical Care Critical Care Time Critical Care Time: No
[2024-04-27 20:18] VITALS: BP 151/70; PULSE 63; RESP 19; TEMP 36.8; O2SAT 99
== END 2024-04-27 20:19 | disposition home or self-care (01) ==
PROVIDERS: Emergency Provider Emergency Medicine
DX: R05.9 Cough, unspecified (principal); J02.9 Acute pharyngitis, unspecified
CPT/HCPCS: 87636; 99283

== ENCOUNTER 2024-05-09 20:58 | Emergency (ER) | payer BC, SELFPAY ==
[2024-05-09 20:59] VITALS: BP 136/90; PULSE 105; RESP 16; TEMP 38.2; O2SAT 99; BMI 32.3
--- NOTE | 2024-05-09 21:00 | ED_ITS ---
<Statement entered by uJdith Bautista DO - 05/09/24 21:31> I was consulted by the GARY, and we discussed the complexity of the problems being addressed. I approved the treatment and management plan for this patient's care in the emergency department, thus performing a substantive portion of the medical decision making. Limited soft tissue ultrasound Indication: Soft tissue pain, swelling, redness, and fever Identified structures: Location: Left foot Findings: -Cellulitis without well-circumscribed abscess. No notable foreign body or gas. Impression: Cellulitis of soft tissue Images were saved to permanent archive The study was technically adequate Soft Tissue CPT Codes: CPT Lower Extremity: 15813-16 This study was performed by me, and I personally interpreted all images/videos. Based on my clinical judgement, these images were [adequate/inadequate] and [did/did not] necessitate further imaging. Judith Bautista DO Discharge Plan Disposition Patient Disposition: Home, Self-Care Condition: Good Prescriptions Prescriptions: No Action No Known Home Medications Referrals Follow up/Referrals: Provider,Referral, MD [Primary Care Provider] - See instructions Mana Das DPM [Staff Physician] - See instructions (Left foot infection and chronic fungal infections) Clinical Impressions Clinical Impression: Cellulitis of foot, left Instructions Patient Instructions: Cellulitis, DI for Skin Abscess Discharge ED Provider: Judith Bautista General Adult HPI General Chief complaint: Skin/Abscess/Foreign Body Stated complaint: ? spider bite left foot Time Seen by Provider: 05/09/24 21:00 History of Present Illness HPI narrative: Patient presents for evaluation of a possible spider bite on his left foot. Patient states that he worked a full shift at [employer] and has his shift continue to go on began having more more discomfort in his left foot. When he took his work boot off he noticed that he had a swelling on the top of his left foot. He did not particularly feel a bite nor did he find a spider carcass. Patient does have some fungal infections in the interdigital space of his toes on the left and right foot primarily between the fourth and fifth digit but the skin is not wet or macerated. 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 Related Data Home Medications Medication Instructions Recorded Confirmed No Known Home Medications 04/27/24 04/27/24 Allergies Allergy/AdvReac Type Severity Reaction Status Date / Time shellfish derived Allergy Verified 04/27/24 18:50 [facility] Disclaimer: The information contained in this section may have been updated after the patient was seen, as this information can be updated by other users. Surgical History History of tonsillectomy Social History Smoking Status: Never smoker alcohol intake: never current occupational status: employed Travel in the last 8 weeks: None ROS Obtained: Yes Systems reviewed as appropriate & no additional complaints except as documented Physical Exam General General appearance: alert and in no apparent distress Respiratory Respiratory exam: Present normal lung sounds bilaterally Cardiovascular Cardiovascular exam: Present regular rate and normal rhythm Expanded Lower Extremity Exam Left: Foot/toe exam: Present full ROM, tenderness, swelling and erythema Top foot image: 2 1. Total area of swelling in the borders marked by myself with an ink pen 2. Central area of necrosis Neurovascular/Tendon exam: Present normal capillary refill; Absent pulse deficit, motor deficit, sensory deficit or tendon deficit Gait: antalgic Neurological Exam Neurological exam: Present alert and oriented X3 Psychiatric Psychiatric exam: Present normal mood Medical Decision Making Medical Records Medical records reviewed: Yes I reviewed the patient's medical records. Charles Inquiry Pt receiving controlled substance: No Vital Signs: 05/09/24 20:59 Temperature 100.7 F H Temperature Source Oral Pulse Rate [Left] 105 H Respiratory Rate 16 Blood Pressure [Right Arm] 136/90 Blood Pressure Mean [Right Arm] 105 02 Sat by Pulse Oximetry 99 Lab Data Lab results reviewed: Yes I reviewed the patient's lab results. Lab Results 05/09/24 21:15: WBC 12.6 H, RBC 5.31, Hgb 15.3, Hct 45.8, MCV 86.3, MCH 28.9, MCHC 33.5, RDW 13.9, Plt Count 201, MPV 8.1, Neut % (Auto) 84.1 H, Lymph % (Auto) 9.5 L, [place] % (Auto) 3.7, Eos % (Auto) 1.7, Baso % (Auto) 1.0, Neut # (Auto) 10.6 H, Lymph # (Auto) 1.2, [place] # (Auto) 0.5, Eos # (Auto) 0.2, Baso # (Auto) 0.1, ESR 14, Sodium 139, Potassium 3.7, Chloride 100, Carbon Dioxide 30, Anion Gap 12.7, BUN 10, Creatinine 0.90, Estimated Creat Clear 175, Estimated GFR 100, Est GFR ( Amer) 121, Glucose 107 H, Calcium 9.8, C-Reactive Protein 13.6 H, Procalcitonin 0.088 05/09/24 21:49: SARS-CoV-2 (PCR) Not detected, Influenza A Untype (PCR) Not detected, Influenza Type B (PCR) Not detected 05/09/24 21:15 05/09/24 21:15 Orders (Tests/Meds): ED MEDICATIONS Discontinued Medications Generic Name Dose Route Start Last Admin Trade Name Freq PRN Reason Stop Dose Admin Acetaminophen 1,000 mg 05/09/24 21:06 05/09/24 21:13 Acetaminophen 500mg Tab PO 05/09/24 21:07 1,000 mg ONCE ONE Administration Lactated Ringer's 1,000 mls @ 999 mls/hr 05/09/24 21:06 05/09/24 21:13 Lactated Ringer's 1000 Ml Bag IV 05/09/24 22:06 999 mls/hr .Q1H1M ONE Administration Dalbavancin 1,500 mg/ Dextrose 250 mls @ 500 mls/hr 05/09/24 22:18 IV 05/09/24 22:19 ONCE ONE Ketorolac Tromethamine 15 mg 05/09/24 21:06 05/09/24 21:13 Ketorolac 30mg/Ml Vial IV 05/09/24 21:07 15 mg ONCE ONE Administration ORDERS Category Date Time Status CXR 2 view (NOT portable) [XR chest 2V] Stat Exams 05/09/24 21:27 Taken Foot XR left minimum 3 views [XR foot LT min 3V] Stat Exams 05/09/24 21:28 Taken POCUS Point of Care (ER Only) Stat Exams 05/09/24 21:08 Ordered BMP [Basic Metabolic Panel] Stat Lab 05/09/24 21:15 Completed CBC w/Auto Diff [Complete Blood Count Auto Diff] Stat Lab 05/09/24 21:15 Completed CRP [C-Reactive Protein] Stat Lab 05/09/24 21:15 Completed ESR [Erythrocyte Sedimentation Rate] Stat Lab 05/09/24 21:15 Completed Procalcitonin Stat Lab 05/09/24 21:15 Completed Rapid PCR Covid and Flu A/B Stat Lab 05/09/24 21:49 Completed Blood Culture Stat Micro 05/09/24 21:15 Received Medical Decision Narrative: In summary patient is a 28-year-old male who presents to the emergency department for evaluation of left foot pain and swelling. Patient is normotensive tachycardic with an O2 sat of 99% breathing 16 times a minute upon arrival, with a temperature of 100.7 on arrival. Physical exam is remarkable for an area on the dorsum of his left foot that appears to have a central area of necrosis that is approximately 3 mm with a surrounding area of edema and erythema and induration and possible fluctuance in the center. He is very tender to touch however he is neurovascular intact distally.. Differential diagnosis includes cellulitis versus abscess. Initial workup will be conducted with hematologic labs [id number] ultrasound and plain film x-ray. Initial interventions include crystalloid bolus Toradol Tylenol. Initial workup reviewed by me shows slightly elevated white count with a left shift but the remainder of his hematologic labs are nonactionable. [id number] ultrasound did not show a pocket of pus but did show cobblestoning indicating cellulitis plain film x-ray shows no deep space and bony involvement. Upon repeat evaluation patient had improved tachycardia and is fever has defervesced. Given this patient is appropriate for Dalvance which was given prior to his discharge. He was referred to podiatry for ongoing follow-up and management. Critical Care Critical Care Time Critical Care Time: No
[2024-05-09] MEDS: KETOROLAC 30MG/ML VIAL 15 MG IV (21:13)
[2024-05-09] MEDS: LACTATED RINGERS 1000ML 1,000 ML 999 ML IV (21:13)
[2024-05-09] MEDS: ACETAMINOPHEN 500MG TAB 1000 MG PO (21:13)
--- NOTE | 2024-05-09 21:27 | XR_ITS ---
PROCEDURE INFORMATION: Exam: XR Chest Exam date and time: 05/09/2024 10:05 PM Age: 28 years old Clinical indication: Cough and fever; Additional info: Cough, fever TECHNIQUE: Imaging protocol: Radiologic exam of the chest. Views: 2 views. Total images: 2 COMPARISON: No relevant prior studies available. FINDINGS: Lungs: Unremarkable. No consolidation. No pulmonary vascular congestion or edema. Pleural spaces: Unremarkable. No pleural effusion. No pneumothorax. Heart/Mediastinum: Unremarkable. No cardiomegaly. No mediastinal widening or hilar enlargement. Bones/joints: Unremarkable. IMPRESSION: No radiographically acute cardiopulmonary process.
--- NOTE | 2024-05-09 21:28 | XR_ITS ---
PROCEDURE INFORMATION: Exam: XR Left Foot Exam date and time: 05/09/2024 10:01 PM Age: 28 years old Clinical indication: Swelling, leg or foot; Additional info: Soft tissue infection top of foot TECHNIQUE: Imaging protocol: Radiologic exam of the left foot. Views: 3 or more views. Total images: 3 COMPARISON: No relevant prior studies available. FINDINGS: Bones/joints: No acute fracture or joint dislocation. No concerning bone lesions or calcifications. No cortical erosion or periostitis. Joint spaces are appropriate for age. Tiny calcaneal enthesophyte at the insertion of the Achilles tendon. Soft tissues: Unremarkable soft tissues. IMPRESSION: Negative left foot.
[2024-05-09 21:38] LABS: Anion Gap 12.7 mEq/L (5-15); Blood Urea Nitrogen 10 mg/dl (9-20); Calcium 9.8 mg/dl (8.4-10.2); Carbon Dioxide 30 mmol/L (22.0-30.0); Chloride 100 mmol/L (98-107); Creatinine Clearance Estimated 175 mL/min (50-200); Estimated Glomerular Filt Rate 100 ml/min (>60); GFR (African American) 121 ML/MIN (>60); Glucose 107 mg/dl (74-100); Potassium 3.7 mmoL/L (3.5-5.1); Sodium 139 mmol/L (136-145)
[2024-05-09 21:43] LABS: C-Reactive Protein 13.6 mg/L (0-4)
[2024-05-09 21:50] LABS: Coronavirus 19, PCR Not Detected (NotDetected); Influenza A, PCR Not Detected (NotDetected); Influenza B, PCR Not Detected (NotDetected)
[2024-05-09 21:55] LABS: Erythrocyte Sedimentation Rate 14 mm/hr (0-15)
[2024-05-09 21:56] LABS: Procalcitonin 0.088 ng/mL (0.0-2.0)
[2024-05-09 22:10] LABS: Basophils # 0.1 K/mm3 (0-0.2); Eosinophils # 0.2 K/mm3 (0.0-0.4); Eosinophils % 1.7 % (0.1-12.0); Hematocrit 45.8 % (42.0-52.0); Hemoglobin 15.3 g/dL (14.1-18.0); Lymphocytes # 1.2 K/mm3 (0.7-4.5); Lymphocytes % 9.5 % (10-50); Mean Corpuscular HGB Conc 33.5 g/dL (31.8-35.4); Mean Corpuscular Hemoglobin 28.9 pg (27.0-31.2); Mean Corpuscular Volume 86.3 fl (80-94); Mean Platelet Volume 8.1 fl (7.4-10.4); Monocytes # 0.5 K/mm3 (0.1-1.0); Monocytes % 3.7 % (1.7-9.3); Neutrophils # 10.6 K/mm3 (1.8-7.8); Neutrophils % 84.1 % (37.0-80.0); Platelet Count 201 K/mm3 (142-424); Red Blood Count 5.31 M/mm3 (4.60-6.20); Red Cell Distribution Width 13.9 % (11.5-17.5); White Blood Count 12.6 K/mm3 (4.8-10.8)
[2024-05-09] MEDS: DALBAVANCIN HCL 1,500 MG in DEXTROSE 5 % IN WATER 250 ML 500 MG IV (22:39)
[2024-05-09 23:24] VITALS: BP 123/87; PULSE 98; RESP 16; TEMP 36.6; O2SAT 98
--- NOTE | 2024-05-14 06:00 | PC.NURSE ---
no growth @ 4 days on blood cx. pending final results.
== END 2024-05-09 23:26 | disposition home or self-care (01) ==
PROVIDERS: Physician Assistant; Emergency Provider Emergency Medicine
DX: L03.116 Cellulitis of left lower limb (principal)
CPT/HCPCS: 71046; 73630; 80048; 84145; 85025; 85651; 86140; 87040; 87636; 96361; 96374; 96375; 99285; J0875; J1885; J7060; J7120

== ENCOUNTER 2025-06-29 09:07 | Emergency (ER) | payer BC, SELFPAY ==
[2025-06-29] VITALS (8 sets, daily range): BP systolic 111–159; BP diastolic 70–119; PULSE 70–114; RESP 14–22; TEMP 36.7–36.9; O2SAT 95–100; BMI 32.3
[2025-06-29 09:14] LABS: Microscopic, Urine URINE MICROSCOPIC (MICROSCOPIC)
--- NOTE | 2025-06-29 09:21 | CT_ITS ---
FINAL REPORT TECHNIQUE: Thin section axial images were obtained from the lung bases to the pubic symphysis without IV contrast. Coronal reconstruction images were obtained from the axial data. Exam was performed using dose reduction technique. CLINICAL HISTORY: L flank pain FINDINGS: There is mild left hydronephrosis related to an obstructing, 5 mm left UPJ stone. There is also left hydroureter with a second obstructing stone at the left UVJ measuring 3 mm. Bilateral tiny nonobstructing renal stones are present. There may be tiny gallstones in the gallbladder. The remaining unenhanced solid abdominal organs are unremarkable. There is no evidence of small bowel obstruction. The appendix is normal. GI tract is without acute abnormality. There is no lymphadenopathy or ascites. No acute osseous abnormality is identified. IMPRESSION: Obstructing left UPJ stone and obstructing left UVJ stone with left hydronephrosis and hydroureter. Bilateral nonobstructing renal stones. Authenticated and ERN
--- NOTE | 2025-06-29 09:24 | PC.NURSE ---
pt back to bathroom d/t urinary urgency.
--- OUTSIDE RECORDS SUMMARY | 2025-06-29 09:25 | XMS_ITS | Clinical Summary ---
Author Organization [facility] Address [address] [place] [id number] Phone [email or web address] [email or web address] Care Prosecuting Attorney Name Role Phone Unavailable Primary Care Provider Unavailabl e Allergies Active Allergy Reactions Criticality Noted Date Comments Shellfish-Derived Products Swelling 2 Throat tightens Medications No known medications Active Problems Problem Noted Date Diagnosed Date Open wound 08/20/2017 Overview (04/29/2018): Encounter for other specified aftercare 08/20/20 17 Overview (04/29/2018): Immunizations Immunization Administration Dates Next Due Tdap (ADACEL BOOSTRIX) (CVX-[id number]) 09/05/2022,0808/2017,09/02/2013 Social History Tobacco Use Types Packs/Day Years Used Date Smoking Tobacco: Never Smokeless Tobacco: Never Tobacco Cessation:Counseling Given: Not Answered Intimate Partner Violence Answer Date R ecorded Insults You Not on file 03/13/2021 Threatens You Not on file 03/13/2021 Screams at You Not on file 03/13/2021 Physically Hurt Not on file 03/13/2021 Intimate Partner Violence Score Not on file 03/13/2021 Depression Answer Date Recorded PHQ Total Score 0 05/25/2024 Stress Answer Date Recorded Stress in your Life Not on file 10/02/2024 Dealing with Stress 3 10/02/2024 Sex and Gender Information Value Date Recorded Sex Assigned at Not on file Legal Sex Male 7:29 AM CDT Gender Identity Not on file Sexual Orientation Not on file Last Filed Vital Signs Vital Sign Reading Time Taken Comments Blood Pressure 130/70 11/19/2024 3:38 PM EST Pulse 96 11/19/2024 3:38 PM EST Temperature 37 C (98.6 F) 11/19/2024 3:38 PM EST Respiratory Rate 16 10/05/2024 12:57 PM EST Oxygen Saturation 98% 11/16/2024 9:55 AM EST Inhaled Oxygen Concentration - - Weight 103 kg (226 lb 3.2 oz) 11/19/2024 3:38 PM EST Height 177.8 cm (5' 10 ) 11/19/2024 3:38 PM EST Body Mass Index 32.46 11/19/2024 3:38 PM EST Plan of Treatment Health Maintenance Due Date Last Done Comments Dental Cleaning/Exam 1994 HIV Screening 1994 Hepatitis C Screening 1994 Polio Immunization (2 of 3 - 4-dose series) 04/24/1999 03/27/1999 Annual Preventive Exam 2012 Hep B Infection Screening - Triple Screen 2012 Hepatitis B Immunization (1 of 3 - 19+ 3-dose series) 2013 Covid-19 Immunization ( - season) 2024 08/27/2021, 07/25/2021 Tetanus Diphtheria and Pertussis Immunization (6 - Td or Tdap) 09/05/2032 09/05/2022, 07/09/2017, 09/02/2013, Additional history exists HIB Immunization Completed 04/05/1996 Varicella Immunization Aged Out 12/25/1998 No lo nger eligible based on patient's age to complete this topic Influenza Immunization Discontinued 9, 09/03/2017, 02/11/2014 HPV Immunization Aged Out No longer e ligible based on patient's age to complete this topic Hepatitis A Immunization Aged Out No longer eligible based on patient's age to complete this topic Pneumococcal: Ped (0 to 5 Yrs) and At-Risk Member (6 to 64 Yrs) Aged Out No longer eligible based on patient's age to complete this topic Insurance [facility] [place] [address] [id number] [place] [address]
[2025-06-29] MEDS: MORPHINE 4MG/ML SYRINGE 4 MG IV (09:36)
[2025-06-29] MEDS: KETOROLAC 30MG/ML VIAL 15 MG IV (09:36)
[2025-06-29] MEDS: ONDANSETRON 4MG/2ML VIAL 4 MG IV (09:36)
[2025-06-29 09:38] LABS: Alanine Aminotransferase 41 U/L (12-78); Albumin Level 4.7 g/dl (3.5-5.0); Albumin/Globulin Ratio 1.6 (1.1-1.8); Alkaline Phosphatase 68 U/L (38-126); Anion Gap 12.1 mEq/L (5-15); Aspartate Amino Transferase 38 U/L (17-59); Bilirubin,Total 0.9 mg/dl (0.2-1.3); Blood Urea Nitrogen 10 mg/dl (9-20); Calcium 9.8 mg/dl (8.4-10.2); Carbon Dioxide 29 mmol/L (22.0-30.0); Chloride 104 mmol/L (98-107); Creatinine Clearance Estimated 156 mL/min (50-200); Creatinine,Serum 1.00 mg/dl (0.66-1.25); Estimated Glomerular Filt Rate 88 ml/min (>60); GFR (African American) 106 ML/MIN (>60); Globulin 2.9 g/dL (1.3-3.2); Glucose 126 mg/dl (74-100); Lipase 42 U/L (23-300); Potassium 4.1 mmoL/L (3.5-5.1); Sodium 141 mmol/L (136-145); Total Protein,Serum 7.6 g/dl (6.3-8.2)
[2025-06-29 09:43] LABS: Bilirubin,Urine Negative (Negative); Color,Urine YELLOW (Yellow); Glucose,Urine (UA) Negative (Negative); Ketones,Urine Negative (Negative); Leukocyte Esterase,Urine Negative (Negative); PH,Urine 6.0 (5.0-8.5); Protein,Urine TRACE (Negative); Specific Gravity, Urine 1.025 (1.005-1.030); Urobilinogen,Urine 1.0 EU/dl (0.2)
[2025-06-29 09:47] LABS: Hematocrit 49.3 % (42.0-52.0); Hemoglobin 16.5 g/dL (14.1-18.0); Immature Granulocytes % 0.3 %; Mean Corpuscular HGB Conc 33.5 g/dL (31.8-35.4); Mean Corpuscular Hemoglobin 28.4 pg (27.0-31.2); Mean Corpuscular Volume 84.7 fl (80-94); Nucleated Red Blood Cells % 0 %; Platelet Count 206 K/mm3 (142-424); Red Blood Count 5.82 M/mm3 (4.60-6.20); Red Cell Distribution Width-SD 38.8 fL; White Blood Count 5.8 K/mm3 (4.8-10.8)
[2025-06-29] MEDS: ACETAMINOPHEN 1,000MG/100ML VIAL 1000 MG IV (09:49)
[2025-06-29 09:52] LABS: Bacteria,Urine Trace /lpf
[2025-06-29] MEDS: LACTATED RINGERS 1000ML 1,000 ML 999 ML IV (10:06)
--- NOTE | 2025-06-29 10:23 | ED_ITS ---
Discharge Plan Disposition Patient Disposition: Home, Self-Care Condition: Good Prescriptions Prescriptions: New oxycodone 5 mg tablet 5 mg PO Q8H PRN (Reason: pain) Qty: 12 0RF ketorolac 10 mg tablet 10 mg PO Q8H PRN (Reason: pain) 4 Days Qty: 12 0RF tamsulosin [Flomax] 0.4 mg capsule 0.4 mg PO HS Qty: 14 0RF ondansetron 4 mg tablet,disintegrating 4 mg PO Q8H PRN (Reason: nausea and vomiting) 4 Days Qty: 12 0RF No Action mupirocin 2 % ointment 1 applic topical TID Qty: 22 0RF Rx Instructions: apply to area on groin as prescribed cephalexin 500 mg capsule 500 mg PO QID 10 Days Qty: 40 0RF sulfamethoxazole-trimethoprim [Bactrim DS] 800-160 mg tablet 1 tab PO BID 10 Days Qty: 20 0RF Referrals Follow up/Referrals: Provider,Referral, MD [Primary Care Provider, Medical] - See instructions Activity Restrictions/Add. Instructions Additional Instructions/Restrictions: You were evaluated in the emergency department today. You have 2 small kidney stones in your left ureter. One is 5 mm and one is 3 mm. We are sending you home to see if they will pass on their own. Follow-up closely with urology. We do not have an interventional urologist at our healthcare facility, but one close option is Dr. Rangel Villanueva with [facility] who has office hours in [place] ([address] [place] [address] [address], [place] [address] - [phone]). You will need to call a urologist to schedule an appointment. Please make sure you drink plenty of fluids and stay orally hydrated. Toradol is an NSAID like ibuprofen and aleve, so do not take other NSAIDs while taking this medication. Try getting by with toradol and Tylenol, but you may choose to take the narcotic pain medication provided to you in the event of severe pain not controlled by these medications. Do not drive or operate heavy machinery while taking narcotic pain medication, as it can be sedating. Narcotic pain medication can be addicting and can cause constipation. Follow-up closely with your primary care provider as well. Return to the emergency department for new or worsening symptoms such as significant worsening in pain, fever greater than 100.4 ?F, intractable nausea and vomiting. Clinical Impressions Clinical Impression: Ureterolithiasis Stand Alone Forms Stand Alone Forms: Work/School Release Instructions Patient Instructions: DI for Kidney Stones Print Language Print Language: Lithuanian Discharge ED Provider: Judiht Bautista General Adult HPI General Chief complaint: PAIN Stated complaint: Pain L back/abd Time Seen by Provider: 06/29/25 09:20 Mode of Arrival: Family Vehicle Source of Information: Patient Description of Symptoms (Recalled from ER Triage Doc. by RN): Pt c/o L sided back pain that radiaites to groin. States the pain began suddenly at 0730 when he awoke. He reports the pain is intermittent and increasing in severeity. He reports nausea. Denies any fever, chills, or body aches. Denies any hx of kidney stones, but does report family hx of kidney stones. Denies any signficant PMH. 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 History of Present Illness HPI narrative: This patient is a 29-year-old male who denies significant past medical history presenting to the emergency department for evaluation with concern for left- sided back pain that radiates to his groin that started at 730 this morning. He states that initially he thought that he just slept on it wrong or was having musculoskeletal pain, but it was not relieved by any sort of positions and has been increasing in severity. He states that he keeps getting random sharp twinges of pain and feeling like he has to pee. He did get nauseated here upon arrival. He denies any significant past medical history, including any sort of history of kidney stones. No recent falls or traumatic injury. No fevers, chills, changes in bowel movements, or other concerns noted Related Data Previous Rx's ?Medication ?Instructions ?Recorded cephalexin 500 mg capsule 500 mg PO QID 10 days #40 ca ps 02/13/25 mupirocin 2 % topical ointment 1 applic topical TID #2 2 grams 02/13/25 sulfamethoxazole 800 1 tab PO BID 10 days #20 tab s 02/13/25 mg-trimethoprim 160 mg tablet (Bactrim DS) ketorolac 10 mg tablet 10 mg PO Q8H PRN pain 4 days #12 06/29/25 tabs ondansetron 4 mg disintegrating 4 mg PO Q8H PRN nausea and 06/29/25 tablet vomiting 4 days #12 tabs oxycodone 5 mg tablet 5 mg PO Q8H PRN pain #12 tab s 06/29/25 tamsulosin 0.4 mg capsule (Flomax) 0.4 mg PO HS #14 ca ps 06/29/25 Allergies Allergy/AdvReac Type Severity Reaction Status Date / Time shellfish derived Allergy Verified 02/13/25 19:01 [facility] Disclaimer: The information contained in this section may have been updated after the patient was seen, as this information can be updated by other users. Medical History Cellulitis Surgical History History of tonsillectomy Social History Smoking Status: Never smoker alcohol intake: never current occupational status: employed Travel in the last 8 weeks?: None Have you lived/traveled outside US in past 30 days?: No Contact w/someone who lives/traveled outside US past 30 days?: No Exposure to someone with infectious disease in past 14 days?: No Do you have a fever (greater than 100.4 F or 38 C)?: No Have you tested positive for COVID-19?: No Exposed to someone with COVID-19 in past 14 days?: No Do you have a sore throat?: No Do you have a cough?: No Do you have any weakness?: No Do you have any diarrhea?: No Are you experiencing any unusual bleeding?: No Do you have any muscle aches/pain?: No Do you have any abdominal pain?: No Are you experiencing loss of taste or smell?: No ROS Obtained: Yes All systems reviewed & no additional complaints except as documented Physical Exam General General appearance: alert Comment: Uncomfortable appearing Head Head exam: atraumatic and normocephalic Eye Eye exam: Present normal appearance, PERRL and EOMI ENT ENT exam: Present normal exam, normal oropharynx, mucous membranes moist and normal external ear exam Neck Neck exam: Present normal inspection, full ROM and trachea midline; Absent tenderness Chest Chest inspection: Present normal inspection and symmetric chest wall rise; Absent tenderness Respiratory Respiratory exam: Present normal lung sounds bilaterally; Absent respiratory distress, wheezes, stridor or accessory muscle use Cardiovascular Cardiovascular exam: Present regular rate and normal rhythm Abdominal Exam Abdominal exam: Present soft; Absent distention, tenderness or guarding Extremities Exam Extremities exam: Present normal inspection, full ROM and normal capillary refill; Absent tenderness or edema Back Exam Back exam: Present normal inspection and full ROM; Absent tenderness Neurological Exam Neurological exam: Present alert, oriented X3, CN II-XII intact and normal gait; Absent motor sensory deficit Psychiatric Psychiatric exam: Present normal affect and normal mood Skin Skin exam: Present warm and dry Medical Decision Making Medical Records Medical records reviewed: Yes I reviewed the patient's medical records. Screening: Per USPSTF and CDC recommendations, given the prevalence of disease in our region, it is our hospital?s policy to screen for HIV and viral Hepatitis for all patients aged 18 and over and those with ongoing risk factors. Charles Inquiry Pt receiving controlled substance: Yes Charles was queried for this patient: Yes Risks and benefits of using a controlled substance: were discussed with pt by me Vital Signs: 06/29/25 09:12 06/29/25 09:13 06/29/25 09:50 Temperature 98.1 F Temperature Source Oral Pulse Rate 114 H 81 Pulse Rate [Right] 109 H Respiratory Rate 22 Blood Pressure 159/119 H 146/96 H Blood Pressure [Right Arm] 159/119 H Blood Pressure Mean 126 112 Blood Pressure Mean [Right Arm] 132 Blood Pressure Source Blood Pressure Source [Right Arm] Automatic Cuff Blood Pressure Position 02 Sat by Pulse Oximetry 100 100 95 Oxygen Delivery Method Room Air 06/29/25 10:20 06/29/25 10:40 06/29/25 11:00 Temperature Temperature Source Pulse Rate 75 78 74 Pulse Rate [Right] Respiratory Rate 16 16 16 Blood Pressure 133/93 H 123/84 118/78 Blood Pressure [Right Arm] Blood Pressure Mean 106 97 91 Blood Pressure Mean [Right Arm] Blood Pressure Source Blood Pressure Source [Right Arm] Blood Pressure Position 02 Sat by Pulse Oximetry 96 98 98 Oxygen Delivery Method 06/29/25 11:34 06/29/25 11:36 Temperature 98.5 F 98.1 F Temperature Source Oral Oral Pulse Rate 70 72 Pulse Rate [Right] Respiratory Rate 14 17 Blood Pressure 111/70 111/70 Blood Pressure [Right Arm] Blood Pressure Mean Blood Pressure Mean [Right Arm] Blood Pressure Source Automatic Cuff Automatic Cuff Blood Pressure Source [Right Arm] Blood Pressure Position Supine 02 Sat by Pulse Oximetry Oxygen Delivery Method Room Air Room Air Lab Data Lab results reviewed: Yes I reviewed the patient's lab results. Lab Results 06/29/25 09:10: WBC 5.8, RBC 5.82, Hgb 16.5, Hct 49.3, MCV 84.7, MCH 28.4, MCHC 33.5, RDW 12.7, Plt Count 206, MPV 10.2, Neut % (Auto) 60.1, Lymph % (Auto) 23.2, [place] % (Auto) 9.8 H, Eos % (Auto) 5.7, Baso % (Auto) 0.9, Neut # (Auto) 3.5, Lymph # (Auto) 1.4, [place] # (Auto) 0.6, Eos # (Auto) 0.3, Baso # (Auto) 0.1, Sodium 141, Potassium 4.1, Chloride 104, Carbon Dioxide 29, Anion Gap 12.1, BUN 10, Creatinine 1.00, Estimated Creat Clear 156, Estimated GFR 88, Est GFR ( Amer) 106, Glucose 126 H, Calcium 9.8, Total Bilirubin 0.9, AST 38, ALT 41, Alkaline Phosphatase 68, Total Protein 7.6, Albumin 4.7, Globulin 2.9, Albumin/Globulin Ratio 1.6, Lipase 42, Urine Color Yellow, Urine Appearance Clear, Urine pH 6.0, Ur Specific [place] 1.025, Urine Protein Trace, Urine Glucose (UA) Negative, Urine Ketones Negative, Urine Blood 3+ A, Urine Nitrate Negative, Urine Bilirubin Negative, Urine Urobilinogen 1.0, Ur Leukocyte Esterase Negative, Urine RBC 10-20, Urine WBC None, Ur Squamous Epith Cells 3-5, Urine Bacteria Trace, HCV Ab MERYL w/Rflx PCR Qn Negative, HIV Ag/Ab Combo Qual Negative 06/29/25 09:10 06/29/25 09:10 Orders (Tests/Meds): ED MEDICATIONS Discontinued Medications Generic Name Dose Route Start Last Admin Trade Name Freq PRN Reason Stop Dose Admin Acetaminophen 1,000 mg 06/29/25 09:20 06/29/25 09:49 Acetaminophen 1,000mg/100ml Vial IV 06/29/25 09:21 1,000 mg ONCE ONE Administration Lactated Ringer's 1,000 mls @ 999 mls/hr 06/29/25 09:52 06/29/25 10:06 Lactated Ringer's 1000 Ml Bag IV 06/29/25 10:52 999 mls/hr .Q1H1M ONE Administration Ketorolac Tromethamine 15 mg 06/29/25 09:20 06/29/25 09:36 Ketorolac 30mg/Ml Vial IV 06/29/25 09:21 15 mg ONCE ONE Administration Morphine Sulfate 4 mg 06/29/25 09:20 06/29/25 09:36 Morphine 4mg/Ml Syringe IV 06/29/25 09:21 4 mg ONCE ONE Administration Ondansetron HCl 4 mg 06/29/25 09:20 06/29/25 09:36 Ondansetron 4mg/2ml Vial IV 06/29/25 09:21 4 mg ONCE ONE Administration Oxycodone HCl 5 mg 06/29/25 10:54 06/29/25 11:25 Oxycodone 5mg Immediate Release Tablet PO 06/29/25 10:55 5 mg ONCE ONE Administration Tamsulosin HCl 0.4 mg 06/29/25 10:54 06/29/25 11:25 Tamsulosin 0.4mg Capsule PO 06/29/25 10:55 0.4 mg ONCE ONE Administration ORDERS Category Date Time Status CT abdomen pelvis wo con Stat Cat Scan 06/29/25 09:21 Completed CBC w/Auto Diff [Complete Blood Count Auto Diff] Stat Lab 06/29/25 09:10 Completed CMP [Comprehensive Metabolic Panel] Stat Lab 06/29/25 09:10 Completed HIV Combo Stat Lab 06/29/25 09:10 Completed Hepatitis C Ab Qual. W/ RFX Stat Lab 06/29/25 09:10 Completed Lipase Stat Lab 06/29/25 09:10 Completed UA [Urinalysis and Microscopic] Stat Lab 06/29/25 09:10 Completed Urine Chlam/Gono/Trich, ANDREY Stat Lab 06/29/25 09:10 Received Medical Decision Narrative: In summary, this patient is a 29-year-old presenting to the Emergency Department for evaluation of left-sided flank pain. Differential diagnoses considered include but are not limited to cystitis, ureterolithiasis, proctitis, colitis, gastroenteritis. Ruling out the most morbid conditions drove assessment. On exam, the patient arrives in a lot of pain, very uncomfortable appearing. workup included CBC, CMP, lipase, urinalysis, CT abdomen pelvis without IV contrast. He was given a bolus of IV fluids as well as IV Toradol, acetaminophen, Zofran, and morphine for symptomatic improvement. I independently interpreted CT prior to the radiologist read and noted left-sided obstructive ureterolithiasis with 2 stones, one 5 mm one 3 mm. Please see their read for final interpretation. Labs were obtained that demonstrated reassuring CBC with no significant leukocytosis or anemia, reassuring chemistry with normal kidney function, reassuring urinalysis with blood but no nitrates, leukocyte esterase, or white blood cells I would be suggestive of infection. On reassessment, patient had good improvement after administration of interventions above. He is lying in bed in no acute distress, afebrile and nontoxic-appearing. Ultimately, I feel he is appropriate for discharge home with trial of passage of kidney stones and close urology follow-up. He was given oral oxycodone and Flomax to help further improve symptoms. He was discharged home with prescriptions for oxycodone, Toradol, Zofran, and Flomax as well as instructions for close urology follow-up and strict return precautions should he develop any worsening or infectious symptoms. Critical Care Critical Care Time Critical Care Time: No
[2025-06-29 10:44] LABS: Hepatitis C Ab Qual. W/ RFX NEGATIVE (Negative)
[2025-06-29] MEDS: OXYCODONE 5MG IMMEDIATE RELEASE TABLET 5 MG PO (11:25)
[2025-06-29] MEDS: TAMSULOSIN 0.4MG CAPSULE 0.4 MG PO (11:25)
== END 2025-06-29 11:39 | disposition home or self-care (01) ==
PROVIDERS: Emergency Provider Emergency Medicine
DX: N20.1 Calculus of ureter (principal)
CPT/HCPCS: 74176; 80053; 81001; 83690; 85025; 86803; 87389; 87491; 87591; 87661; 96361; 96374; 96375; 99285; J0131; J1885; J2270; J2405; J7120